=== PATIENT | male | born 1955 | race Caucasian/White ===

== ENCOUNTER 2020-09-16 20:35 | Emergency (ER) | payer BC ==
[~2020-09-16] VITALS: Ht 172.7 cm; Wt 72.6 kg
[2020-09-16] MEDS ORDERED: FLUO20CA36 PO (20:45)
[2020-09-16] MEDS ORDERED: ARIP5TAB10 PO (20:45)
[2020-09-16] MEDS ORDERED: LISI-782 PO (20:45)
[2020-09-16] MEDS ORDERED: FOLI1TAB94 PO (20:45)
[2020-09-16] MEDS ORDERED: MULT-594 PO (20:45)
[2020-09-16] MEDS ORDERED: THIA100T13 PO (20:45)
[2020-09-16] MEDS ORDERED: DIAZ5TAB PO (20:45)
[2020-09-16] MEDS ORDERED: EMTR1TAB14 PO (20:45)
[2020-09-16] MEDS ORDERED: TAMS-3 PO ×2 (20:45→22:36)
--- NOTE | 2020-09-16 20:45 | NUR ---
Pt. bib ra 89 from treatment center for weakness. Pt. is at rehab for alcohol and benzodiazepine use. Pt. is a&ox4 but fatigued and dozing intermittently. Denies sob, headache, vision changes.
[2020-09-16] MEDS ORDERED: IV NS 1000 ML 1,000 ML IV ONE ×2 (21:15)
[2020-09-16 21:37] LABS: HEMATOCRIT 36.5 % (36.7-47.1); MEAN CORPUSCULAR HEMOGLOBIN 39.1 uug (23.8-33.4); MEAN CORPUSCULAR VOLUME 113.7 fL (73.0-96.2); PLATELET COUNT (AUTO) 175 K/uL (152-348)
[2020-09-16 21:44] LABS: CREATININE 1.5 mg/dL (0.6-1.3); POTASSIUM 3.9 mmol/L (3.5-5.1)
[2020-09-16 21:50] LABS: BILIRUBIN,DIRECT 0.2 mg/dL (0.0-0.2); BILIRUBIN,TOTAL 0.3 mg/dL (0.2-1.0); TOTAL PROTEIN, SERUM 6.5 g/dL (6.4-8.2)
--- NOTE | 2020-09-16 22:44 | NUR ---
Eva from [facility] states to call [phone] if and when patient gets discharged from department.
--- NOTE | 2020-09-16 23:13 | NUR ---
Pt. to be dc'd. Spoke nikolay/ Eva from treatment center, they will be picking him up, eta is 30 min
--- NOTE | 2020-09-17 00:02 | NUR ---
Patient discharged to home in stable condition. Written and verbal after care instructions given. Patient verbalizes understanding of instructions. Stressed follow up or return to ER for worsening s/s. Pt a&ox4, denies dizziness. No distress. Walks with steady gait. All belongings taken. IV removed.
[2020-09-17 01:08] VITALS: BP 133/76
== END 2020-09-16 22:30 | disposition other institution (70) ==
LOC: ER 20:38
DX: I95.2 Hypotension due to drugs (principal); R00.1 Bradycardia, unspecified; N40.0 Benign prostatic hyperplasia without lower urinary tract symptoms; E78.5 Hyperlipidemia, unspecified; F32.9 Major depressive disorder, single episode, unspecified
CPT/HCPCS: 36415; 70030-TC; 82747; 83735; 85014; 85025; 93005; A4663; J7030

== ENCOUNTER 2021-06-20 15:00 | Emergency (ER) | payer SELFPAY ==
[~2021-06-20] VITALS: Ht 172.7 cm; Wt 64.9 kg
[~2021-06-20 15:00] MED LIST: ARIP5TAB10 PO; DIAZ5TAB PO; EMTR1TAB14 PO; FLUO20CA36 PO; FOLI1TAB94 PO; LISI-782 PO; MULT-594 PO; TAMS-3 PO; THIA100T13 PO
--- NOTE | 2021-06-20 22:00 | NUR ---
Patient discharged to home in stable condition. Written and verbal after care instructions given. Patient verbalizes understanding of instructions. Stressed follow up or return to ER for worsening s/s. Patient out of ER via taxi, no acute signs of distress, VSS, all belongings taken.
[2021-06-20 22:19] VITALS: BP 103/65
== END 2021-06-20 22:20 | disposition home or self-care (01) ==
LOC: ER 15:02
DX: S09.90XA Unspecified injury of head, initial encounter (principal); V48.4XXA Person boarding or alighting a car injured in noncollision transport accident, initial encounter; Y92.199 Unspecified place in other specified residential institution as the place of occurrence of the external cause; F10.229 Alcohol dependence with intoxication, unspecified; G93.89 Other specified disorders of brain; M47.812 Spondylosis without myelopathy or radiculopathy, cervical region; R00.1 Bradycardia, unspecified; Z79.899 Other long term (current) drug therapy; E78.5 Hyperlipidemia, unspecified; F32.A Depression, unspecified
CPT/HCPCS: 70450; 72125; 93005; A4663